=== PATIENT | male | born 1995 | race Caucasian/White ===

== ENCOUNTER 2016-12-24 01:31 | Emergency (ER) | payer BC ==
[2016-12-24 02:10] VITALS: RESP 16
[2016-12-24 03:37] LABS: BASO % 0.4 % (0.0-2.0); EOS # 0.4 K/uL (0.0-0.7); EOS % 3.5 % (0.0-4.0); HEMATOCRIT 43.8 % (35.0-51.0); LYMPH # 2.4 K/uL (1.0-4.3); LYMPH % 22.8 % (20.0-40.0); MEAN CELL VOLUME 89.7 fL (80.0-94.0); MEAN CORPUSCULAR HEMOGLOBIN 31.6 pg (27.0-31.0); MEAN CORPUSCULAR HGB CONC 35.2 g/dL (33.0-37.0); MEAN PLATELET VOLUME 8.6 fL (7.2-11.7); MONO # 0.8 K/uL (0.0-0.8); MONO % 7.2 % (0.0-10.0); RED CELL DISTRIBUTION WIDTH 12.7 % (11.5-14.5); WHITE BLOOD COUNT 10.5 K/uL (4.8-10.8)
[2016-12-24 03:39] LABS: RBC URINE < 1 /hpf (0-3); URINE BILIRUBIN NEGATIVE (NEGATIVE); URINE BLOOD NEGATIVE (NEGATIVE); URINE COLOR Yellow (YELLOW); URINE GLUCOSE (UA) NORMAL (Normal); URINE KETONE TRACE mg/dL (NEGATIVE); URINE LEUKOCYTE ESTERASE NEG Leu/uL (Negative); URINE PROTEIN NEGATIVE (NEGATIVE); URINE UROBILINOGEN NORMAL mg/dL (0.2-1.0); WBC URINE < 1 /hpf (0-5)
[2016-12-24 03:45] LABS: CHLORIDE 107 mmol/L (98-107); POTASSIUM 3.6 mmol/L (3.6-5.2); SODIUM 142 mmol/L (132-148)
[2016-12-24 03:47] LABS: AST/SGOT 32 U/L (17-59); BILIRUBIN,TOTAL 0.6 mg/dL (0.2-1.3); CARBON DIOXIDE 18 mmol/L (22-30); GFR AFRICAN-AMERICAN > 60
[2016-12-24 03:48] LABS: ALB/GLOB RATIO 1.5 (1.0-2.1); ALKALINE PHOSPHATASE 57 U/L (38-126); ALT/SGPT 48 U/L (21-72); BLOOD UREA NITROGEN 14 mg/dL (9-20); CALCIUM 8.9 mg/dl (8.6-10.4); GLUCOSE,RANDOM 85 mg/dL (75-110)
[2016-12-24 03:49] LABS: ALCOHOL SERUM 180 mg/dl (0-10)
--- NOTE | 2016-12-24 03:55 | C.PDOC ---
History Of Present Illness 21 y/o male presents to the ER c/o dizziness and light headedness tonight after drinking alcohol tonight. Patient also c/o left knee pain after an injury 6 months prior. Denies suicidal ideation, homicidal ideation, lower extremity weakness, numbness, or any other complaints. Time Seen by Provider: 12/24/16 02:52 Chief Complaint (Nursing): Substance Abuse History Per: Patient History/Exam Limitations: no limitations Onset/Duration Of Symptoms: Hrs Current Symptoms Are (Timing): Still Present Suicide/Self Injury Attempted (Context): None Modifying Factor(s): Alcohol Severity: Mild Associated Symptoms: denies: Suicidal Thoughts, Suicidal Plan Recent travel outside of the [place]: No Additional History Per: Patient Past Medical History Reviewed: Historical Data, Nursing Documentation, Vital Signs Vital Signs: Last Vital Signs Temp 97.7 F 12/24/16 02:07 Pulse 88 12/24/16 02:07 Resp 16 12/24/16 02:07 BP 129/81 12/24/16 02:07 Pulse Ox 98 12/24/16 04:38 - Medical History PMH: Asthma Family History: States: Unknown Family Hx - Social History Hx Tobacco Use: Yes Hx Alcohol Use: Yes Hx Substance Use: No - Immunization History Hx Tetanus Toxoid Vaccination: No Hx Influenza Vaccination: No Hx Pneumococcal Vaccination: No Review Of Systems Except As Marked, All Systems Reviewed And Found Negative. Constitutional: Positive for: Other (Alcohol use) Cardiovascular: Positive for: Light Headedness Musculoskeletal: Positive for: Leg Pain (Left knee pain) Neurological: Positive for: Dizziness. Negative for: Weakness, Numbness Psych: Negative for: Suicidal ideation, Other (Homicidal ideation) Physical Exam - Physical Exam Appears: Non-toxic, No Acute Distress, Other (Alcohol use, (+) AOB) Skin: Warm, Dry Head: Atraumatic, Normacephalic Cardiovascular: Rhythm Regular Respiratory: Normal Breath Sounds, No Rales, No Rhonchi, No Wheezing Gastrointestinal/Abdominal: Soft, No Tenderness Extremity: Normal ROM, Capillary Refill (<2secs), No Deformity, No Swelling Neurological/Psych: Oriented x3 (Awake and alert), Normal Speech, Normal Cognition ED Course And Treatment - Laboratory Results Result Diagrams: 12/24/16 03:31 12/24/16 03:31 ECG: Interpreted By Me, Viewed By Me ECG Rhythm: Sinus Rhythm ECG Interpretation: No Acute Changes Interpretation Of ECG: NSR,Right axis deviation, no zcute changes, borderline tracings Rate From EC O2 Sat by Pulse Oximetry: 98 (RA) Pulse Ox Interpretation: Normal Medical Decision Making Medical Decision Making: Impression: 21 y/o male c/o dizziness and light headedness tonight after drinking alcohol tonight. plans: * Blood work up * UA * EKG Disposition Counseled Patient/Family Regarding: Diagnosis - Disposition Referrals: [facility] [Outside] Disposition: HOME/ ROUTINE Disposition Time: 04:36 Condition: STABLE Instructions: Alcohol Intoxication (GEN) Forms: Gen Discharge Inst American, [employer] Connect (Citizen Of [place]) Print Language: SWEDISH - POA Present On Arrival: None - Clinical Impression Clinical Impression: Alcohol intoxication - Scribe Statement The provider has reviewed the documentation as recorded by the Scribe Brant watts All medical record entries made by the Scribe were at my direction and personally dictated by me. I have reviewed the chart and agree that the record accurately reflects my personal performance of the history, physical exam, medical decision making, and the department course for this patient. I have also personally directed, reviewed, and agree with the discharge instructions and disposition.
[2016-12-24 04:49] VITALS: BP 142/72; PULSE 79; TEMP 97.4; O2SAT 97
--- NOTE | 2016-12-25 12:38 | CARD ---
APPROVED REPORT EKG Measurement Heart [id number] <Conclusion> Normal sinus rhythm Rightward axis Borderline ECG
== END 2016-12-24 05:03 | disposition home or self-care (01) ==
LOC: C.ER 01:31
DX: F10.129 Alcohol abuse with intoxication, unspecified (principal); Y90.6 Blood alcohol level of 120-199 mg/100 ml
CPT/HCPCS: 80053; 81001; 82948; 85025; 93005; 99285; G0480

== ENCOUNTER 2017-01-30 21:15 | Emergency (ER) | payer BC ==
[2017-01-30 21:47] VITALS: BP 136/80; PULSE 80; RESP 14; TEMP 98.3; O2SAT 99
[2017-01-30] MEDS ORDERED: Naproxen 550 mg Tab PO STA (22:05)
[2017-01-30] MEDS ORDERED: Naproxen 550 mg Tab PO ONE (22:08)
--- NOTE | 2017-01-30 23:14 | C.PDOC ---
History Of Present Illness 21 year old male presents to the ED with complaints of right foot pain status post stepping on a nail just prior to arrival. Patient states nail went through sneaker but it unsure of the depth penetrated into the foot. He denies change in sensation or other injuries. Time Seen by Provider: 01/30/17 22:03 Chief Complaint (Nursing): Lower Extremity Problem/Injury History Per: Patient History/Exam Limitations: no limitations Onset/Duration Of Symptoms: Mins Current Symptoms Are (Timing): Still Present Recent travel outside of the [place]: No Past Medical History Reviewed: Historical Data, Nursing Documentation, Vital Signs Vital Signs: Last Vital Signs Temp 98.3 F 01/30/17 21:42 Pulse 80 01/30/17 21:42 Resp 14 01/30/17 21:42 BP 136/80 01/30/17 21:42 Pulse Ox 99 01/30/17 23:43 - Medical History PMH: Asthma Family History: States: Unknown Family Hx - Social History Hx Tobacco Use: Yes Hx Alcohol Use: Yes Hx Substance Use: No - Immunization History Hx Tetanus Toxoid Vaccination: No Hx Influenza Vaccination: No Hx Pneumococcal Vaccination: No Review Of Systems Constitutional: Negative for: Fever Musculoskeletal: Positive for: Foot Pain (right foot pain ) Neurological: Negative for: Weakness, Numbness Physical Exam - Physical Exam Appears: Non-toxic, No Acute Distress Skin: Warm, Dry, No Rash, No Ecchymosis Extremity: Normal ROM, No Pedal Edema, No Calf Tenderness, Capillary Refill ( good capillary refill, less than two seconds ), No Deformity, No Swelling, Other (1-2 mm puncture wound to plantar surface of right foot, proximal to 2nd and 3rd toes. No drainage or erythema. mild tenderness to palpation.) Pulses: Left Dorsalis Pedis: Normal, Right Dorsalis Pedis: Normal Neurological/Psych: Oriented x3, Normal Speech, Normal Cognition, Normal Motor, Normal Sensation ED Course And Treatment O2 Sat by Pulse Oximetry: 99 (RA) - Other Rad Right Foot X-Ray X-Ray: Interpreted by Me, Viewed By Me Interpretation: Negative. Progress Note: Right foot X-Ray was ordered and patient was given Naproxen and Tetanus vaccine in ED. Patient was prescribed LevoFLOXacin because Cipro is not covered under his insurance. Medical Decision Making Medical Decision Making: pt with puncture wound to sole of right foot through sneaker; no fb noted on xray. will treat with cipro and nsaids, f/u podiatry. Disposition Counseled Patient/Family Regarding: Studies Performed, Diagnosis, Need For Followup, Rx Given - Disposition Referrals: Podiatry Clinic [Outside] Disposition: HOME/ ROUTINE Disposition Time: 23:13 Condition: STABLE Additional Instructions: Take antibiotics and pain medication as prescribed. Keep foot clean and dry. Follow up with podiatry clinic. Return to ER for any signs of infection such as redness, swelling, drainage. fever. 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 - Scribe Statement The provider has reviewed the documentation as recorded by the Scribrehan Ibrahim All medical record entries made by the Keithibrehan were at my direction and personally dictated by me. I have reviewed the chart and agree that the record accurately reflects my personal performance of the history, physical exam, medical decision making, and the department course for this patient. I have also personally directed, reviewed, and agree with the discharge instructions and disposition.
--- NOTE | 2017-01-31 11:04 | RAD ---
PROCEDURE: Right Foot Radiographs. HISTORY: stepped on nail. fb sensation distal 2/3 toes COMPARISON: None. FINDINGS: BONES: No evidence of acute displaced fracture nor dislocation. No cortical destructive changes. . JOINTS: Mild hallux valgus deformity. SOFT TISSUES: No evidence of radiopaque foreign bodies or gross subcutaneous emphysema. OTHER FINDINGS: None. IMPRESSION: No evidence of acute displaced fracture nor dislocation. No evidence of obvious cortical destructive changes. No radiopaque foreign bodies or subcutaneous emphysema identified.
== END 2017-01-30 23:26 | disposition home or self-care (01) ==
LOC: C.ER 21:15
DX: S91.331A Puncture wound without foreign body, right foot, initial encounter (principal); W45.0XXA Nail entering through skin, initial encounter

== ENCOUNTER 2017-07-26 06:57 | Emergency (ER) | payer BC ==
[2017-07-26 07:06] VITALS: RESP 18
--- NOTE | 2017-07-26 08:09 | C.PDOC ---
History Of Present Illness 22 year old male presents to the ED c/o right hand pain and swelling that started yesterday. Patient states he fell yesterday and ever since has been feeling pain in his right hand. Patient denies LOC, headache, head injury, weakness, numbness. Time Seen by Provider: 07/26/17 07:24 Chief Complaint (Nursing): Finger,Hand,&Wrist History Per: Patient History/Exam Limitations: no limitations Onset/Duration Of Symptoms: Days Current Symptoms Are (Timing): Still Present Quality: "Pain" Exacerbating Factor(s): Movement Recent travel outside of the [place]: No Additional History Per: Patient Past Medical History Reviewed: Historical Data, Nursing Documentation, Vital Signs Vital Signs: Last Vital Signs Temp 98 F 07/26/17 08:45 Pulse 85 07/26/17 08:45 Resp 18 07/26/17 08:45 BP 113/75 07/26/17 08:45 Pulse Ox 96 07/26/17 08:45 - Medical History PMH: Asthma Denies: Chronic Kidney Disease Surgical History: No Surg Hx Family History: States: Unknown Family Hx - Social History Hx Tobacco Use: Yes Hx Alcohol Use: Yes Hx Substance Use: No - Immunization History Hx Tetanus Toxoid Vaccination: No Hx Influenza Vaccination: Yes Hx Pneumococcal Vaccination: No Review Of Systems Constitutional: Negative for: Fever, Chills Cardiovascular: Negative for: Chest Pain Respiratory: Negative for: Cough, Shortness of Breath Gastrointestinal: Negative for: Vomiting, Abdominal Pain Musculoskeletal: Positive for: Hand Pain Skin: Negative for: Rash Neurological: Negative for: Weakness, Numbness Physical Exam - Physical Exam Appears: Non-toxic, No Acute Distress Skin: Normal Color, Warm, Dry Head: Atraumatic, Normacephalic Eye(s): bilateral: Normal Inspection Nose: No Discharge Oral Mucosa: Moist Neck: Normal ROM, Supple Chest: Symmetrical Cardiovascular: Rhythm Regular, No Murmur Respiratory: Normal Breath Sounds, No Rales, No Rhonchi, No Wheezing Gastrointestinal/Abdominal: Soft, No Tenderness, No Guarding, No Rebound Extremity: Normal ROM, Tenderness (right 1st and 5th MCP joints), Capillary Refill (< 2 seconds), No Deformity, Swelling (right hand 1st and 5th MCP joint) Pulses: Left Radial: Normal, Right Radial: Normal Neurological/Psych: Oriented x3, Normal Motor, Normal Sensation Gait: Steady ED Course And Treatment O2 Sat by Pulse Oximetry: 98 (On RA) Pulse Ox Interpretation: Normal - Other Rad Right Hand X-Ray X-Ray: Viewed By Me, Read By Radiologist Interpretation: Accession No. : [id number]. Patient Name / ID : MAUREEN SAUCEDO / [id number]. Exam Date : 07/26/2017 07:33:20 ( Approved ). Study Comment : Sex / Age : M / 22Y. Creator : Galdino Larose MD. Dictator : Galdino Larose MD. Hide Cleaner : Contract Administrator : Galdino Larose MD. Approver2 : Report Date : 07/26/2017 09:11:23. My Comment : . PROCEDURE: Right Hand Radiographs. HISTORY: injury. COMPARISON: None. FINDINGS: BONES: Nondisplaced transverse fracture distal metacarpal diaphysis with minimal palmar/radial displacement of the distal fragment. No significant angulation. No other fracture identified. JOINTS: Normal. No osteoarthritic changes. SOFT TISSUES: Normal. OTHER FINDINGS: None. IMPRESSION: Minimally displaced fracture distal metacarpal diaphysis. Medical Decision Making Medical Decision Making: Impression: right hand pain and swelling Plan: * Right hand x-Ray * Patient was placed on an ulnar gutter splint, placed on an arm sling which was done by CP and supervised by Me * Patient was D/C and advised to follow up with a hand specialist Disposition - Disposition Referrals: Ric Van MD [Staff Provider] - Disposition: HOME/ ROUTINE Disposition Time: 08:08 Condition: STABLE Additional Instructions: Follow up with Hand specialist within 1-2 days. Return to ED if feel worse. 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 - Scribe Statement The provider has reviewed the documentation as recorded by the Scribe Caden Rojo All medical record entries made by the Scribe were at my direction and personally dictated by me. I have reviewed the chart and agree that the record accurately reflects my personal performance of the history, physical exam, medical decision making, and the department course for this patient. I have also personally directed, reviewed, and agree with the discharge instructions and disposition.
[2017-07-26 08:56] VITALS: BP 113/75; PULSE 85; TEMP 98
--- NOTE | 2017-07-26 09:12 | RAD ---
PROCEDURE: Right Hand Radiographs. HISTORY: injury COMPARISON: None. FINDINGS: BONES: Nondisplaced transverse fracture distal metacarpal diaphysis with minimal palmar/radial displacement of the distal fragment. No significant angulation. No other fracture identified. JOINTS: Normal. No osteoarthritic changes. SOFT TISSUES: Normal. OTHER FINDINGS: None. IMPRESSION: Minimally displaced fracture distal metacarpal diaphysis.
[2017-07-26 11:40] VITALS: O2SAT 98
== END 2017-07-26 08:56 | disposition home or self-care (01) ==
LOC: C.ER 06:57
DX: S62.338A Displaced fracture of neck of other metacarpal bone, initial encounter for closed fracture (principal); W18.30XA Fall on same level, unspecified, initial encounter

== ENCOUNTER 2017-08-01 22:09 | Emergency (ER) | payer BC ==
[2017-08-01 22:24] VITALS: RESP 20
--- NOTE | 2017-08-01 22:47 | C.PDOC ---
History Of Present Illness 22 y/o male with right 5th metacarpal fx, seen in ED 5 days ago for same, has a splint on, returns to ER because her ran out of percocet and also sts he banged his right hand today and pain feels different and worse and concerned he caused further injury to that area. Time Seen by Provider: 08/01/17 22:24 Chief Complaint (Nursing): Finger,Hand,&Wrist History Per: Patient History/Exam Limitations: no limitations Onset/Duration Of Symptoms: Days (1) Current Symptoms Are (Timing): Worse Quality: "Pain" Severity: Moderate Past Medical History Reviewed: Historical Data, Nursing Documentation, Vital Signs Vital Signs: Last Vital Signs Temp 98.1 F 08/02/17 00:06 Pulse 68 08/02/17 00:06 Resp 20 08/02/17 00:06 BP 142/84 08/02/17 00:06 Pulse Ox 100 08/02/17 02:47 - Medical History PMH: Asthma Denies: Chronic Kidney Disease Family History: States: Unknown Family Hx - Social History Hx Tobacco Use: Yes Hx Alcohol Use: Yes Hx Substance Use: No - Immunization History Hx Tetanus Toxoid Vaccination: No Hx Influenza Vaccination: Yes Hx Pneumococcal Vaccination: No Review Of Systems Constitutional: Negative for: Fever, Chills Musculoskeletal: Positive for: Hand Pain (right) Skin: Positive for: Bruising (to right fingers). Negative for: Rash Neurological: Negative for: Weakness, Numbness Physical Exam - Physical Exam Appears: Non-toxic, No Acute Distress Head: Atraumatic, Normacephalic Extremity: Capillary Refill (less than 2 seconds), No Deformity, Other (dorsum right hand swollen, tender to 5th metacarpal. abrasions to dorsal surface right 4th ad 5th fingers. sensation intact, ) Extremity: Right: Other Pulses: Right Radial: Normal Neurological/Psych: Normal Speech, Normal Cognition ED Course And Treatment O2 Sat by Pulse Oximetry: 100 Orthopedic Time Performed: 23:15 Time Out: Side verified, Site verified Procedure: Splint Type: Short Location: Right, Hand Consent obtained: Verbal Performed by: Mid-level Provider (done by cp, checked by me) Diagnosis: Fracture Location: Right, Distal Bone: Metacarpal, 5th Capillary refill: Normal Distal Sensation: Normal Distal Motor Function: Normal Capillary Refill: Normal Distal Sensation: Normal Distal Motor Function: Normal Medical Decision Making Medical Decision Making: pt's splint was wet, hand tender; splint removed, re-exrayed, no new findings. new ulna gutter splint applied. pt has appt with hand on . Disposition Counseled Patient/Family Regarding: Studies Performed, Diagnosis, Need For Followup, Rx Given - Disposition Disposition: HOME/ ROUTINE Disposition Time: 23:59 Condition: GOOD Additional Instructions: Keep splint clean and dry. Take Tylenol for pain. Follow up with hand specialist on as scheduled for evaluation and cast. eep hand elevated. Prescriptions: Acetaminophen [Tylenol 325mg tab] 650 mg PO Q4 #50 tab Instructions: Boxer's Fracture (DC) Forms: [facility] (Occitan) - Clinical Impression Clinical Impression: Boxer's fracture
[2017-08-02 00:17] VITALS: BP 142/84; PULSE 68; TEMP 98.1
[2017-08-02 02:33] VITALS: O2SAT 100
--- NOTE | 2017-08-02 12:26 | RAD ---
PROCEDURE: Right Hand Radiographs. HISTORY: 5th metacarpal pain COMPARISON: Comparison made with prior study 07/26/2017 FINDINGS: BONES: Re- demonstrated is a boxer fracture involving the distal aspect right 5th metacarpal with slight radial and palmar angulation of distal fragment. Overlying soft tissue swelling. JOINTS: Normal. No osteoarthritic changes. SOFT TISSUES: Normal. OTHER FINDINGS: None. IMPRESSION: Again noted is a boxer fracture right 5th metacarpal as detailed above
== END 2017-08-02 00:17 | disposition home or self-care (01) ==
LOC: C.ER 22:09
DX: S62.396G Other fracture of fifth metacarpal bone, right hand, subsequent encounter for fracture with delayed healing (principal); X58.XXXD Exposure to other specified factors, subsequent encounter